=== PATIENT | male | born 1995 | race Caucasian/White ===

== ENCOUNTER 2018-10-01 13:48 | Emergency (ER) | payer SELFPAY ==
[~2018-10-01] VITALS: Ht 180.3 cm; Wt 90.9 kg
[2018-10-01] MEDS ORDERED: [UNRECOGNIZED DRUG - OTHER] PO (14:01)
[2018-10-01] MEDS ORDERED: ESCI20TA PO (14:01)
[2018-10-01] MEDS ORDERED: ARIP5TAB8 PO (14:01)
[2018-10-01] MEDS ORDERED: BUSP15 PO (14:01)
[2018-10-01] MEDS ORDERED: DOCU240C25 PO (14:01)
[2018-10-01] MEDS ORDERED: GABA-531 PO (14:01)
[2018-10-01] MEDS ORDERED: SENN15TA38 PO (14:01)
[2018-10-01] MEDS ORDERED: OMEG-53 PO (14:01)
[2018-10-01] MEDS ORDERED: LISD30CA PO (14:01)
[2018-10-01] MEDS ORDERED: GABA-533 PO (14:03)
[2018-10-01] MEDS ORDERED: DSS100 PO (14:03)
[2018-10-01 17:22] VITALS: BP 141/93
== END 2018-10-01 17:25 | disposition home or self-care (01) ==
LOC: EMS 13:50
DX: F32.9 Major depressive disorder, single episode, unspecified (principal); F41.9 Anxiety disorder, unspecified

== ENCOUNTER 2020-11-18 13:37 | Inpatient (IN) | payer MEDICAID ==
[~2020-11-18] VITALS: Ht 180.3 cm; Wt 77.1 kg
[~2020-11-18 13:37] MED LIST: ARIP5TAB8 PO; BUSP15 PO; DSS100 PO; ESCI20TA87 PO; GABA-1201 PO; LISD30CA PO; OMEG-53 PO; SENN15TA4 PO; [UNRECOGNIZED DRUG - OTHER] PO
[2020-11-18] MEDS ORDERED: OLAN10TA3 PO (16:46)
[2020-11-18] MEDS ORDERED: DIVA-85 PO (16:46)
[2020-11-18] MEDS ORDERED: INFLUENZA VIRUS VACCINE QVS 2020-21 (6MO+)/PF 60 MCG/0.5 ML SYRINGE IM ONE (20:15)
[2020-11-18 21:00] VITALS: BP 133/88
[2020-11-18] MEDS ORDERED: DOCUSATE SODIUM 100 MG CAPSULE PO PRN (22:30)
[2020-11-19 05:38] VITALS: BP 129/63
[2020-11-19] MEDS ORDERED: OMEPRAZOLE 20 MG CAPSULE PO PRN (06:15)
[2020-11-19] MEDS ORDERED: BENZOCAINE/MENTHOL LOZENGE PO PRN (06:15)
[2020-11-19] MEDS ORDERED: LOPERAMIDE HCL 2 MG CAPSULE PO PRN (06:15)
[2020-11-19] MEDS ORDERED: ALBUTEROL SULFATE HFA 90 MCG/PUFF 8 GM INHALER IH PRN (06:15)
[2020-11-19] MEDS ORDERED: BACITRACIN 28 GM OINTMENT TP PRN (06:15)
[2020-11-19] MEDS ORDERED: CloNIDine HCL 0.1 MG TABLET PO PRN (06:15)
[2020-11-19] MEDS ORDERED: ONDANSETRON HCL 4 MG TABLET PO PRN (06:15)
[2020-11-19] MEDS ORDERED: ACETAMINOPHEN 325 MG TABLET PO PRN (06:15)
[2020-11-19] MEDS ORDERED: PETROLATUM,WHITE 28 GM JELLY TP PRN (06:15)
[2020-11-19] MEDS ORDERED: IBUPROFEN 600 MG TABLET PO PRN (06:15)
[2020-11-19] MEDS ORDERED: MAG HYDROX/AL HYDROX/SIMETH ES 30 ML SUSPENSION UDCUP PO PRN (06:15)
[2020-11-19 08:26] VITALS: BP 102/57
[2020-11-19 08:51] LABS: APPEARANCE,URINE CLEAR (CLEAR); BILIRUBIN,URINE NEGATIVE (NEGATIVE); GLUCOSE, URINE (UA) NEGATIVE (NEGATIVE); KETONES,URINE NEGATIVE (NEGATIVE); LEUKOCYTE ESTERASE ,URINE NEGATIVE (NEGATIVE); NITRATE,URINE NEGATIVE (NEGATIVE); OCCULT BLOOD,URINE NEGATIVE (NEGATIVE); PROTEIN,URINE NEGATIVE (NEGATIVE); UROBILINOGEN,URINE 0.2 mg/dL (<=1.0)
[2020-11-19 08:54] LABS: AMPHET/METH SCREEN,URINE NEGATIVE (NEGATIVE); BARBITURATE SCREEN, URINE NEGATIVE (NEGATIVE); BENZODIAZEPINES SCREEN,URINE NEGATIVE (NEGATIVE); CANNABINOID SCREEN,URINE POSITIVE (NEGATIVE); COCAINE SCREEN,URINE NEGATIVE (NEGATIVE); METHADONE SCREEN, URINE NEGATIVE (NEGATIVE); OPIATE SCREEN,URINE NEGATIVE (NEGATIVE)
[2020-11-19 09:00] LABS: BASOPHILS % (AUTO) 0.8 % (0.0-2.0); EOSINOPHILS % (AUTO) 5.1 % (1.0-6.0); HEMATOCRIT 39.4 % (41-53); HEMOGLOBIN 13.9 g/dL (13.5-17.5); LYMPHOCYTES # (AUTO) 1.8 K/uL (1.0-4.8); LYMPHOCYTES % (AUTO) 34.9 % (22.0-44.0); MEAN CORPUSCULAR HEMOGLOBIN 29.9 pg (26.0-34.0); MEAN CORPUSCULAR HGB CONC 35.2 G/dL (31.0-37.0); MEAN CORPUSCULAR VOLUME 85 fL (80-100); MONOCYTES # (AUTO) 0.5 K/uL (0.1-1.0); MONOCYTES % (AUTO) 8.9 % (2.0-9.0); NEUTROPHILS # (AUTO) 2.6 K/uL (1.8-7.7); NEUTROPHILS % (AUTO) 50.3 % (40.0-70.0); PLATELET COUNT (AUTO) 283 K/uL (150-450); RED BLOOD CELL COUNT(AUTO) 4.65 MIL/uL (4.50-5.90); RED CELL DISTRIBUTION WIDTH 12.6 % (11.5-14.5)
[2020-11-19 09:08] LABS: HEMOGLOBIN A1C 4.9 % (3.8-5.6)
[2020-11-19] MEDS: NICOTINE 21 MG/24 HOUR PATCH TD SCH (09:13)
[2020-11-19 09:16] LABS: PHENCYCLIDINE SCREEN,URINE NEGATIVE (NEGATIVE)
[2020-11-19 09:45] LABS: ALANINE AMINOTRANSFERASE 44 U/L (12-78); ALBUMIN 3.8 g/dL (3.4-5.0); ALKALINE PHOSPHATASE 150 U/L (46-116); ANION GAP 6 mmol/L (8-16); ASPARTATE AMINOTRANSFERASE 25 U/L (15-37); BILIRUBIN,TOTAL 0.5 mg/dL (0.1-1.0); CALCIUM, TOTAL 9.1 mg/dL (8.8-10.5); CARBON DIOXIDE 28 mmol/L (22-29); CHLORIDE 104 mmol/L (98-107); CHOL/HDL RATIO 2.6 (4.2-7.3); CHOLESTEROL 136 mg/dL (131-200); CREATININE 1.21 mg/dL (0.60-1.30); FREE T4 (FREE THYROXINE) 0.87 ng/dL (0.76-1.46); GLOMERULAR FILTR. RATE CALC > 60 mL/min (>60); GLUCOSE,RANDOM 86 mg/dL (70-110); HDL CHOLESTEROL 52 mg/dL (40-60); LDL CHOL (CALC.) 74 mg/dL (0-130); POTASSIUM 3.9 mmol/L (3.5-5.1); SODIUM SERUM 138 mmol/L (136-145); THYROID STIMULATING HORMONE 0.21 uIU/mL (0.36-3.74); TOTAL PROTEIN, SERUM 7.2 g/dL (6.4-8.2); TRIGLYCERIDES 52 mg/dL (15-150); UREA NITROGEN, BLOOD 20 mg/dL (7-18)
[2020-11-19] MEDS: LORazepam 2 MG TABLET PO PRN (10:44)
[2020-11-19] MEDS: FLUoxetine HCL 20 MG CAPSULE PO SCH (13:55)
[2020-11-19] MEDS: GABAPENTIN 300 MG CAPSULE PO SCH (16:16)
[2020-11-19 16:42] VITALS: BP 127/76
[2020-11-19] MEDS: QUEtiapine FUMARATE 100 MG TABLET PO SCH (20:01)
[2020-11-20 06:35] VITALS: BP 118/78
[2020-11-20] MEDS: FLUoxetine HCL 20 MG CAPSULE PO SCH (08:14)
[2020-11-20] MEDS: GABAPENTIN 300 MG CAPSULE PO SCH ×3 (08:15→16:10)
[2020-11-20] MEDS: NICOTINE 21 MG/24 HOUR PATCH TD SCH (08:15)
[2020-11-20 08:47] VITALS: BP 116/72
[2020-11-20] MEDS: MAGNESIUM HYDROXIDE SUSPENSION 30 ML UDCUP PO PRN (15:53)
[2020-11-20] MEDS: LORazepam 2 MG TABLET PO PRN (15:54)
[2020-11-20 17:18] VITALS: BP 140/80
[2020-11-20] MEDS: QUEtiapine FUMARATE 100 MG TABLET PO SCH (20:10)
[2020-11-21 00:56] VITALS: BP 123/67
[2020-11-21] MEDS: FLUoxetine HCL 20 MG CAPSULE PO SCH (08:04)
[2020-11-21] MEDS: LORazepam 2 MG TABLET PO PRN ×3 (08:05→18:14)
[2020-11-21] MEDS: NICOTINE 21 MG/24 HOUR PATCH TD SCH (08:05)
[2020-11-21] MEDS: GABAPENTIN 300 MG CAPSULE PO SCH ×3 (08:05→16:05)
[2020-11-21 14:57] VITALS: BP 151/65
[2020-11-21 16:32] VITALS: BP 152/88
[2020-11-21] MEDS: QUEtiapine FUMARATE 100 MG TABLET PO SCH (20:02)
[2020-11-21 21:33] VITALS: BP 132/88
[2020-11-22 00:58] VITALS: BP 128/76
[2020-11-22 05:00] VITALS: BP 138/94
[2020-11-22] MEDS: LORazepam 2 MG TABLET PO PRN ×3 (05:03→19:34)
[2020-11-22] MEDS: FLUoxetine HCL 20 MG CAPSULE PO SCH (08:13)
[2020-11-22] MEDS: GABAPENTIN 300 MG CAPSULE PO SCH ×3 (08:13→16:41)
[2020-11-22] MEDS: NICOTINE 21 MG/24 HOUR PATCH TD SCH (08:13)
[2020-11-22] MEDS: LISINOPRIL 10 MG TABLET PO SCH (10:10)
[2020-11-22 13:49] VITALS: BP 144/80
[2020-11-22] MEDS: MAGNESIUM HYDROXIDE SUSPENSION 30 ML UDCUP PO PRN (15:01)
[2020-11-22 17:04] VITALS: BP 140/85
[2020-11-22] MEDS: QUEtiapine FUMARATE 100 MG TABLET PO SCH (21:18)
[2020-11-23 06:29] VITALS: BP 133/69
[2020-11-23] MEDS: LORazepam 2 MG TABLET PO PRN (06:33)
[2020-11-23 08:10] VITALS: BP 152/89
[2020-11-23] MEDS: GABAPENTIN 300 MG CAPSULE PO SCH ×3 (08:37→16:18)
[2020-11-23] MEDS: NICOTINE 21 MG/24 HOUR PATCH TD SCH (08:37)
[2020-11-23] MEDS: LISINOPRIL 10 MG TABLET PO SCH (08:37)
[2020-11-23] MEDS: FLUoxetine HCL 20 MG CAPSULE PO SCH (08:37)
[2020-11-23] MEDS: HALOPERIDOL 5 MG TABLET PO PRN (08:37)
[2020-11-23 08:48] LABS: COVID AG,FIA SOURCE NASOPHARYNGEAL
[2020-11-23] MEDS ORDERED: LORazepam 2 MG/ML VIAL IM ONE (09:40)
[2020-11-23] MEDS ORDERED: HALOPERIDOL LACTATE 5 MG/ML VIAL IM ONE (09:40)
[2020-11-23] MEDS ORDERED: HALOPERIDOL LACTATE 5 MG/ML VIAL ONE (09:44)
[2020-11-23] MEDS ORDERED: LORazepam 2 MG/ML VIAL ONE (09:44)
[2020-11-23 10:30] VITALS: BP 132/84
[2020-11-23 16:30] VITALS: BP 116/72
[2020-11-23] MEDS: QUEtiapine FUMARATE 100 MG TABLET PO SCH (20:15)
[2020-11-24 04:44] VITALS: BP 128/83
[2020-11-24 06:21] VITALS: BP 124/84
[2020-11-24] MEDS: LORazepam 2 MG TABLET PO PRN ×3 (06:24→17:14)
[2020-11-24] MEDS: FLUoxetine HCL 20 MG CAPSULE PO SCH (08:17)
[2020-11-24] MEDS: LISINOPRIL 10 MG TABLET PO SCH (08:17)
[2020-11-24] MEDS: GABAPENTIN 300 MG CAPSULE PO SCH ×3 (08:17→16:42)
[2020-11-24] MEDS: NICOTINE 21 MG/24 HOUR PATCH TD SCH (08:17)
[2020-11-24 08:30] VITALS: BP 138/84
[2020-11-24 16:25] VITALS: BP 11/74
[2020-11-24] MEDS: QUEtiapine FUMARATE 100 MG TABLET PO SCH (20:05)
[2020-11-24] MEDS: ZOLPIDEM TARTRATE 10 MG TABLET PO PRN (22:57)
[2020-11-25 05:36] VITALS: BP 126/82
[2020-11-25] MEDS: LORazepam 2 MG TABLET PO PRN ×3 (05:40→17:35)
[2020-11-25] MEDS: HALOPERIDOL 5 MG TABLET PO PRN (06:20)
[2020-11-25] MEDS: GABAPENTIN 300 MG CAPSULE PO SCH ×3 (08:01→16:28)
[2020-11-25] MEDS: LITHIUM CARBONATE 300 MG CAPSULE PO SCH ×2 (08:01→16:28)
[2020-11-25] MEDS: LISINOPRIL 10 MG TABLET PO SCH (08:01)
[2020-11-25] MEDS: FLUoxetine HCL 20 MG CAPSULE PO SCH (08:01)
[2020-11-25] MEDS: NICOTINE 21 MG/24 HOUR PATCH TD SCH (08:02)
[2020-11-25 08:19] VITALS: BP 120/70
[2020-11-25 16:33] VITALS: BP 128/78
[2020-11-25] MEDS: QUEtiapine FUMARATE 100 MG TABLET PO SCH (20:10)
[2020-11-26] MEDS: LORazepam 2 MG TABLET PO PRN ×3 (04:51→15:54)
[2020-11-26 05:01] VITALS: BP 131/83
[2020-11-26] MEDS: MULTIVITAMINS WITH MINERALS, THERAPEUTIC TABLET PO SCH (08:21)
[2020-11-26] MEDS: LITHIUM CARBONATE 300 MG CAPSULE PO SCH ×2 (08:21→17:38)
[2020-11-26] MEDS: NICOTINE 21 MG/24 HOUR PATCH TD SCH (08:21)
[2020-11-26] MEDS: LISINOPRIL 10 MG TABLET PO SCH (08:21)
[2020-11-26] MEDS: FLUoxetine HCL 20 MG CAPSULE PO SCH (08:21)
[2020-11-26] MEDS: GABAPENTIN 300 MG CAPSULE PO SCH ×3 (08:21→17:38)
[2020-11-26 08:40] VITALS: BP 128/74
[2020-11-26 16:36] VITALS: BP 129/81
[2020-11-26] MEDS: QUEtiapine FUMARATE 100 MG TABLET PO SCH (20:06)
[2020-11-26] MEDS: ZOLPIDEM TARTRATE 10 MG TABLET PO PRN (20:32)
[2020-11-27 00:45] VITALS: BP 126/71
[2020-11-27] MEDS: LORazepam 2 MG TABLET PO PRN ×2 (06:53→13:56)
[2020-11-27] MEDS: GABAPENTIN 300 MG CAPSULE PO SCH ×3 (08:34→16:11)
[2020-11-27] MEDS: FLUoxetine HCL 20 MG CAPSULE PO SCH (08:34)
[2020-11-27] MEDS: LISINOPRIL 10 MG TABLET PO SCH (08:34)
[2020-11-27] MEDS: LITHIUM CARBONATE 300 MG CAPSULE PO SCH ×2 (08:34→16:11)
[2020-11-27] MEDS: MULTIVITAMINS WITH MINERALS, THERAPEUTIC TABLET PO SCH (08:34)
[2020-11-27] MEDS: NICOTINE 21 MG/24 HOUR PATCH TD SCH (08:34)
[2020-11-27 08:45] VITALS: BP 132/72
[2020-11-27 16:29] VITALS: BP 138/86
[2020-11-27] MEDS: HALOPERIDOL 5 MG TABLET PO PRN (18:16)
[2020-11-27] MEDS: QUEtiapine FUMARATE 100 MG TABLET PO SCH (20:05)
[2020-11-28 00:38] VITALS: BP 128/76
[2020-11-28] MEDS: FLUoxetine HCL 20 MG CAPSULE PO SCH (08:14)
[2020-11-28] MEDS: LITHIUM CARBONATE 300 MG CAPSULE PO SCH (08:14)
[2020-11-28] MEDS: GABAPENTIN 300 MG CAPSULE PO SCH ×2 (08:14→12:53)
[2020-11-28] MEDS: MULTIVITAMINS WITH MINERALS, THERAPEUTIC TABLET PO SCH (08:14)
[2020-11-28] MEDS: LISINOPRIL 10 MG TABLET PO SCH (08:14)
[2020-11-28] MEDS: NICOTINE 21 MG/24 HOUR PATCH TD SCH (08:16)
[2020-11-28] MEDS: LORazepam 2 MG TABLET PO PRN (08:41)
[2020-11-28 08:44] VITALS: BP 115/64
[2020-11-28] MEDS ORDERED: LITH300C3 PO (10:36)
[2020-11-28] MEDS ORDERED: GABA-1181 PO (10:36)
[2020-11-28] MEDS ORDERED: LISI-893 PO (10:36)
[2020-11-28] MEDS ORDERED: FLUO-191 PO (10:36)
[2020-11-28] MEDS ORDERED: QUET100T PO (10:36)
== END 2020-11-28 13:00 | disposition home or self-care (01) | DRG 751 ==
LOC: B2S 19:59
PROVIDERS: ADMIT Psychiatry & Neurology Psychiatry; ATTEND Psychiatry & Neurology Psychiatry
DX: F29 Unspecified psychosis not due to a substance or known physiological condition (principal); R45.851 Suicidal ideations; F41.9 Anxiety disorder, unspecified; F12.90 Cannabis use, unspecified, uncomplicated; R41.843 Psychomotor deficit; R63.0 Anorexia; Z68.23 Body mass index [BMI] 23.0-23.9, adult; R63.4 Abnormal weight loss; K59.00 Constipation, unspecified; G47.00 Insomnia, unspecified; Z20.822 Contact with and (suspected) exposure to COVID-19; Z23 Encounter for immunization
CPT/HCPCS: 80307; 83036; 84439; 84443; 87081; 87426; 90686; J1630; J2060

== ENCOUNTER 2020-12-14 12:07 | Inpatient (IN) | payer MEDICAID ==
[~2020-12-14] VITALS: Ht 180.3 cm; Wt 76.6 kg
[~2020-12-14 12:07] MED LIST changes: -ARIP5TAB8 PO; -BUSP15 PO; -DSS100 PO; -ESCI20TA87 PO; +FLUO-191 PO; +GABA-1181 PO; -GABA-1201 PO; -LISD30CA PO; +LISI-893 PO; +LITH300C3 PO; -OMEG-53 PO; +QUET100T PO; -SENN15TA4 PO; -[UNRECOGNIZED DRUG - OTHER] PO
[2020-12-14] MEDS ORDERED: HALOPERIDOL 5 MG TABLET PO PRN (17:30)
[2020-12-14] MEDS ORDERED: -PHARMACY VACCINE NOTE- MISC ONE (18:15)
[2020-12-14 18:29] VITALS: BP 159/96
[2020-12-14] MEDS: LORazepam 2 MG TABLET PO PRN (18:39)
[2020-12-15 00:50] VITALS: BP 113/71
[2020-12-15] MEDS: ZOLPIDEM TARTRATE 10 MG TABLET PO PRN (00:55)
[2020-12-15] MEDS: NICOTINE 21 MG/24 HOUR PATCH TD SCH (08:02)
[2020-12-15] MEDS: LISINOPRIL 10 MG TABLET PO SCH (08:02)
[2020-12-15] MEDS: LORazepam 2 MG TABLET PO PRN ×3 (08:05→20:36)
[2020-12-15 08:23] VITALS: BP 136/82
[2020-12-15 08:41] LABS: BASOPHILS % (AUTO) 0.5 % (0.0-2.0); EOSINOPHILS % (AUTO) 3.1 % (1.0-6.0); HEMATOCRIT 41.7 % (41-53); LYMPHOCYTES # (AUTO) 1.9 K/uL (1.0-4.8); LYMPHOCYTES % (AUTO) 23.5 % (22.0-44.0); MEAN CORPUSCULAR HGB CONC 33.6 G/dL (31.0-37.0); MEAN CORPUSCULAR VOLUME 87 fL (80-100); MONOCYTES # (AUTO) 1.1 K/uL (0.1-1.0); MONOCYTES % (AUTO) 13.4 % (2.0-9.0); NEUTROPHILS # (AUTO) 4.8 K/uL (1.8-7.7); NEUTROPHILS % (AUTO) 59.5 % (40.0-70.0); PLATELET COUNT (AUTO) 348 K/uL (150-450); RED BLOOD CELL COUNT(AUTO) 4.82 MIL/uL (4.50-5.90)
[2020-12-15 08:52] LABS: HEMOGLOBIN A1C 4.8 % (3.8-5.6)
[2020-12-15 09:01] LABS: ALANINE AMINOTRANSFERASE 39 U/L (12-78); ALBUMIN 3.6 g/dL (3.4-5.0); ALKALINE PHOSPHATASE 179 U/L (46-116); ANION GAP 7 mmol/L (8-16); ASPARTATE AMINOTRANSFERASE 26 U/L (15-37); BILIRUBIN,TOTAL 0.4 mg/dL (0.1-1.0); CALCIUM, TOTAL 9.1 mg/dL (8.8-10.5); CARBON DIOXIDE 30 mmol/L (22-29); CHLORIDE 104 mmol/L (98-107); CHOL/HDL RATIO 2.1 (4.2-7.3); CHOLESTEROL 121 mg/dL (131-200); FREE T4 (FREE THYROXINE) 1.05 ng/dL (0.76-1.46); GLOMERULAR FILTR. RATE CALC > 60 mL/min (>60); GLUCOSE,RANDOM 88 mg/dL (70-110); HDL CHOLESTEROL 58 mg/dL (40-60); LDL CHOL (CALC.) 56 mg/dL (0-130); POTASSIUM 4.2 mmol/L (3.5-5.1); SODIUM SERUM 141 mmol/L (136-145); THYROID STIMULATING HORMONE 0.51 uIU/mL (0.36-3.74); TOTAL PROTEIN, SERUM 7.1 g/dL (6.4-8.2); TRIGLYCERIDES 36 mg/dL (15-150); UREA NITROGEN, BLOOD 15 mg/dL (7-18)
[2020-12-15 16:20] VITALS: BP 128/65
[2020-12-15] MEDS ORDERED: QUEtiapine FUMARATE 100 MG TABLET PO SCH (21:00)
[2020-12-16 01:43] VITALS: BP 118/69
[2020-12-16] MEDS: FLUoxetine HCL 20 MG CAPSULE PO SCH (08:11)
[2020-12-16] MEDS: GABAPENTIN 400 MG CAPSULE PO SCH ×3 (08:11→17:58)
[2020-12-16] MEDS: LISINOPRIL 10 MG TABLET PO SCH (08:11)
[2020-12-16] MEDS: LITHIUM CARBONATE 300 MG CAPSULE PO SCH ×2 (08:11→17:58)
[2020-12-16] MEDS: NICOTINE 21 MG/24 HOUR PATCH TD SCH (08:13)
[2020-12-16 08:24] VITALS: BP 138/79
[2020-12-16 08:41] LABS: BILIRUBIN,URINE NEGATIVE (NEGATIVE); GLUCOSE, URINE (UA) NEGATIVE (NEGATIVE); KETONES,URINE NEGATIVE (NEGATIVE); LEUKOCYTE ESTERASE ,URINE NEGATIVE (NEGATIVE); NITRATE,URINE NEGATIVE (NEGATIVE); OCCULT BLOOD,URINE NEGATIVE (NEGATIVE); PH,URINE 7.5 (5.0-8.0); PROTEIN,URINE NEGATIVE (NEGATIVE); UROBILINOGEN,URINE 0.2 mg/dL (<=1.0)
[2020-12-16 08:44] LABS: AMPHET/METH SCREEN,URINE NEGATIVE (NEGATIVE); BARBITURATE SCREEN, URINE NEGATIVE (NEGATIVE); BENZODIAZEPINES SCREEN,URINE NEGATIVE (NEGATIVE); CANNABINOID SCREEN,URINE NEGATIVE (NEGATIVE); COCAINE SCREEN,URINE NEGATIVE (NEGATIVE); METHADONE SCREEN, URINE NEGATIVE (NEGATIVE); OPIATE SCREEN,URINE NEGATIVE (NEGATIVE)
[2020-12-16 08:47] LABS: PHENCYCLIDINE SCREEN,URINE NEGATIVE (NEGATIVE)
[2020-12-16 08:50] LABS: APPEARANCE,URINE HAZY (CLEAR)
[2020-12-16] MEDS ORDERED: GABAPENTIN 300 MG CAPSULE PO SCH (09:00)
[2020-12-16] MEDS: LORazepam 2 MG TABLET PO PRN ×3 (11:52→21:48)
[2020-12-16 16:22] VITALS: BP 150/89
[2020-12-16] MEDS: QUEtiapine FUMARATE 300 MG TABLET PO SCH (20:23)
[2020-12-16] MEDS: ZOLPIDEM TARTRATE 10 MG TABLET PO PRN (20:23)
[2020-12-16] MEDS ORDERED: HALOPERIDOL LACTATE 5 MG/ML VIAL IM ONE (22:00)
[2020-12-16] MEDS ORDERED: DiphenhydrAMINE HCL 50 MG/ML VIAL IM ONE (22:00)
[2020-12-17 06:00] VITALS: BP 111/67
[2020-12-17 09:07] VITALS: BP 137/88
[2020-12-17] MEDS: MULTIVITAMINS WITH MINERALS, THERAPEUTIC TABLET PO SCH (10:00)
[2020-12-17] MEDS: FOLIC ACID 1 MG TABLET PO SCH (10:00)
[2020-12-17] MEDS: LISINOPRIL 10 MG TABLET PO SCH (10:00)
[2020-12-17] MEDS: LITHIUM CARBONATE 300 MG CAPSULE PO SCH ×2 (10:01→16:52)
[2020-12-17] MEDS: GABAPENTIN 400 MG CAPSULE PO SCH ×3 (10:01→16:52)
[2020-12-17] MEDS: FLUoxetine HCL 20 MG CAPSULE PO SCH (10:01)
[2020-12-17] MEDS: THIAMINE 100 MG TABLET PO SCH (10:01)
[2020-12-17] MEDS: NICOTINE 21 MG/24 HOUR PATCH TD SCH (10:01)
[2020-12-17] MEDS: LORazepam 2 MG TABLET PO PRN ×2 (13:15→19:37)
[2020-12-17 16:45] VITALS: BP 137/90
[2020-12-17] MEDS ORDERED: ACETAMINOPHEN 325 MG TABLET PO PRN (19:45)
[2020-12-17] MEDS: QUEtiapine FUMARATE 300 MG TABLET PO SCH (20:17)
[2020-12-17] MEDS: ZOLPIDEM TARTRATE 10 MG TABLET PO PRN (21:41)
[2020-12-18 05:20] VITALS: BP 143/85
[2020-12-18] MEDS: LISINOPRIL 10 MG TABLET PO SCH (08:09)
[2020-12-18] MEDS: FOLIC ACID 1 MG TABLET PO SCH (08:09)
[2020-12-18] MEDS: LITHIUM CARBONATE 300 MG CAPSULE PO SCH ×2 (08:09→16:12)
[2020-12-18] MEDS: FLUoxetine HCL 20 MG CAPSULE PO SCH (08:10)
[2020-12-18] MEDS: THIAMINE 100 MG TABLET PO SCH (08:10)
[2020-12-18] MEDS: GABAPENTIN 400 MG CAPSULE PO SCH ×3 (08:10→16:12)
[2020-12-18] MEDS: MULTIVITAMINS WITH MINERALS, THERAPEUTIC TABLET PO SCH (08:10)
[2020-12-18] MEDS: NICOTINE 21 MG/24 HOUR PATCH TD SCH (08:11)
[2020-12-18 08:46] VITALS: BP 150/83
[2020-12-18 10:25] VITALS: BP 132/69
[2020-12-18 17:30] VITALS: BP 145/79
[2020-12-18] MEDS: ZOLPIDEM TARTRATE 10 MG TABLET PO PRN (20:33)
[2020-12-18] MEDS: QUEtiapine FUMARATE 300 MG TABLET PO SCH (20:58)
[2020-12-19 00:44] VITALS: BP 136/72
[2020-12-19] MEDS: FLUoxetine HCL 20 MG CAPSULE PO SCH (08:24)
[2020-12-19] MEDS: MULTIVITAMINS WITH MINERALS, THERAPEUTIC TABLET PO SCH (08:24)
[2020-12-19] MEDS: LITHIUM CARBONATE 300 MG CAPSULE PO SCH (08:24)
[2020-12-19] MEDS: FOLIC ACID 1 MG TABLET PO SCH (08:24)
[2020-12-19] MEDS: LISINOPRIL 10 MG TABLET PO SCH (08:24)
[2020-12-19] MEDS: THIAMINE 100 MG TABLET PO SCH (08:24)
[2020-12-19] MEDS: GABAPENTIN 400 MG CAPSULE PO SCH ×2 (08:24→12:04)
[2020-12-19] MEDS: NICOTINE 21 MG/24 HOUR PATCH TD SCH (08:24)
[2020-12-19 08:58] VITALS: BP 143/78
[2020-12-19] MEDS ORDERED: GABA-1181 PO (09:05)
[2020-12-19] MEDS ORDERED: QUET200T PO (09:05)
[2020-12-19 09:24] LABS: COVID AG,FIA SOURCE NASAL SWAB
[2020-12-20] MEDS ORDERED: GABA-1201 PO (19:34)
[2020-12-20] MEDS ORDERED: QUET300T2 PO (19:34)
== END 2020-12-19 14:40 | disposition home or self-care (01) | DRG 750 ==
LOC: B2S 17:28
PROVIDERS: ADMIT Psychiatry & Neurology Psychiatry; ATTEND Psychiatry & Neurology Psychiatry
DX: F25.9 Schizoaffective disorder, unspecified (principal); R45.851 Suicidal ideations; Z59.0 Homelessness; I10 Essential (primary) hypertension; F15.90 Other stimulant use, unspecified, uncomplicated; F41.9 Anxiety disorder, unspecified; G47.00 Insomnia, unspecified; F19.10 Other psychoactive substance abuse, uncomplicated; Z20.822 Contact with and (suspected) exposure to COVID-19; K59.00 Constipation, unspecified; F17.200 Nicotine dependence, unspecified, uncomplicated; Z71.6 Tobacco abuse counseling; Z71.51 Drug abuse counseling and surveillance of drug abuser
CPT/HCPCS: 80307; 83036; 84439; 84443; 87081; 87426; J1200; J1630

== ENCOUNTER 2020-12-20 16:47 | Inpatient (IN) | payer MEDICAID, OTHER ==
[~2020-12-20] VITALS: Ht 180.3 cm; Wt 80.5 kg
[~2020-12-20 16:47] MED LIST changes: -QUET100T PO; +QUET200T PO
[2020-12-20 17:30] LABS: BASOPHILS % (AUTO) 0.7 % (0.0-2.0); EOSINOPHILS % (AUTO) 0.4 % (1.0-6.0); HEMATOCRIT 41.3 % (41-53); LYMPHOCYTES # (AUTO) 2.4 K/uL (1.0-4.8); LYMPHOCYTES % (AUTO) 15.4 % (22.0-44.0); MEAN CORPUSCULAR HGB CONC 34.1 G/dL (31.0-37.0); MEAN CORPUSCULAR VOLUME 85 fL (80-100); MONOCYTES # (AUTO) 1.4 K/uL (0.1-1.0); MONOCYTES % (AUTO) 9.2 % (2.0-9.0); NEUTROPHILS # (AUTO) 11.6 K/uL (1.8-7.7); NEUTROPHILS % (AUTO) 74.3 % (40.0-70.0); PLATELET COUNT (AUTO) 381 K/uL (150-450); RED BLOOD CELL COUNT(AUTO) 4.84 MIL/uL (4.50-5.90)
[2020-12-20 17:36] LABS: COVID AG,FIA SOURCE NASOPHARYNGEAL
[2020-12-20 17:52] LABS: ANION GAP 9 mmol/L (8-16); CALCIUM, TOTAL 9.4 mg/dL (8.8-10.5); CARBON DIOXIDE 31 mmol/L (22-29); CHLORIDE 98 mmol/L (98-107); GLOMERULAR FILTR. RATE CALC > 60 mL/min (>60); GLUCOSE,RANDOM 102 mg/dL (70-110); POTASSIUM 3.5 mmol/L (3.5-5.1); SODIUM SERUM 138 mmol/L (136-145); UREA NITROGEN, BLOOD 17 mg/dL (7-18)
[2020-12-20 17:57] LABS: ALANINE AMINOTRANSFERASE 45 U/L (12-78); ALBUMIN 4.2 g/dL (3.4-5.0); ALKALINE PHOSPHATASE 154 U/L (46-116); ASPARTATE AMINOTRANSFERASE 42 U/L (15-37); BILIRUBIN,TOTAL 0.7 mg/dL (0.1-1.0); TOTAL PROTEIN, SERUM 7.9 g/dL (6.4-8.2)
[2020-12-20 18:12] LABS: AMPHET/METH SCREEN,URINE POSITIVE (NEGATIVE); BARBITURATE SCREEN, URINE NEGATIVE (NEGATIVE); BENZODIAZEPINES SCREEN,URINE NEGATIVE (NEGATIVE); CANNABINOID SCREEN,URINE POSITIVE (NEGATIVE); COCAINE SCREEN,URINE NEGATIVE (NEGATIVE); METHADONE SCREEN, URINE NEGATIVE (NEGATIVE); OPIATE SCREEN,URINE NEGATIVE (NEGATIVE)
[2020-12-20 18:14] LABS: PHENCYCLIDINE SCREEN,URINE NEGATIVE (NEGATIVE)
[2020-12-20] MEDS ORDERED: ZOLPIDEM TARTRATE 10 MG TABLET PO PRN (19:30)
[2020-12-20] MEDS ORDERED: QUET300T2 PO (19:34)
[2020-12-20] MEDS ORDERED: GABA-1201 PO (19:34)
[2020-12-20] MEDS ORDERED: ACETAMINOPHEN 500 MG TABLET PO ONE (20:30)
[2020-12-20 21:50] VITALS: BP 122/74
[2020-12-20] MEDS ORDERED: -PHARMACY VACCINE NOTE- MISC ONE (22:15)
[2020-12-21 00:03] VITALS: BP 127/81
[2020-12-21] MEDS: LORazepam 2 MG TABLET PO PRN ×3 (00:04→17:32)
[2020-12-21] MEDS ORDERED: PETROLATUM,WHITE 28 GM JELLY TP PRN (08:30)
[2020-12-21] MEDS ORDERED: BENZOCAINE/MENTHOL LOZENGE PO PRN (08:30)
[2020-12-21] MEDS ORDERED: CloNIDine HCL 0.1 MG TABLET PO PRN (08:30)
[2020-12-21] MEDS ORDERED: ALBUTEROL SULFATE HFA 90 MCG/PUFF 8 GM INHALER IH PRN (08:30)
[2020-12-21] MEDS ORDERED: OMEPRAZOLE 20 MG CAPSULE PO PRN (08:30)
[2020-12-21] MEDS ORDERED: LOPERAMIDE HCL 2 MG CAPSULE PO PRN (08:30)
[2020-12-21] MEDS ORDERED: IBUPROFEN 600 MG TABLET PO PRN (08:30)
[2020-12-21] MEDS ORDERED: ACETAMINOPHEN 325 MG TABLET PO PRN (08:30)
[2020-12-21] MEDS ORDERED: ONDANSETRON HCL 4 MG TABLET PO PRN (08:30)
[2020-12-21] MEDS ORDERED: DOCUSATE SODIUM 100 MG CAPSULE PO PRN (08:30)
[2020-12-21] MEDS ORDERED: BACITRACIN 28 GM OINTMENT TP PRN (08:30)
[2020-12-21] MEDS ORDERED: MAG HYDROX/AL HYDROX/SIMETH ES 30 ML SUSPENSION UDCUP PO PRN (08:30)
[2020-12-21 08:31] VITALS: BP 118/66
[2020-12-21] MEDS ORDERED: LORazepam 2 MG/ML VIAL ONE (08:51)
[2020-12-21] MEDS ORDERED: HALOPERIDOL LACTATE 5 MG/ML VIAL ONE (08:51)
[2020-12-21] MEDS ORDERED: HALOPERIDOL LACTATE 5 MG/ML VIAL IM ONE ×2 (09:00→09:15)
[2020-12-21] MEDS ORDERED: LORazepam 2 MG/ML VIAL IM ONE ×2 (09:00→09:15)
[2020-12-21] MEDS ORDERED: DiphenhydrAMINE HCL 50 MG/ML VIAL IM ONE ×2 (09:00→09:15)
[2020-12-21 16:43] VITALS: BP 136/68
[2020-12-21] MEDS: HALOPERIDOL 5 MG TABLET PO PRN (17:33)
[2020-12-21] MEDS: MAGNESIUM HYDROXIDE SUSPENSION 30 ML UDCUP PO PRN (20:53)
[2020-12-22 04:52] VITALS: BP 121/69
[2020-12-22] MEDS: LORazepam 2 MG TABLET PO PRN ×4 (06:24→22:45)
[2020-12-22] MEDS: LITHIUM CARBONATE 300 MG CAPSULE PO SCH ×2 (07:43→16:39)
[2020-12-22] MEDS: HALOPERIDOL 5 MG TABLET PO PRN (07:43)
[2020-12-22] MEDS: FLUoxetine HCL 20 MG CAPSULE PO SCH (07:43)
[2020-12-22 08:38] VITALS: BP 146/81
[2020-12-22] MEDS ORDERED: NICOTINE 21 MG/24 HOUR PATCH TD ONE (11:30)
[2020-12-22 16:35] VITALS: BP 113/73
[2020-12-23 08:38] VITALS: BP 135/78
[2020-12-23] MEDS: FLUoxetine HCL 20 MG CAPSULE PO SCH (08:59)
[2020-12-23] MEDS: LITHIUM CARBONATE 300 MG CAPSULE PO SCH ×2 (08:59→16:36)
[2020-12-23] MEDS: LORazepam 2 MG TABLET PO PRN ×4 (09:08→23:55)
[2020-12-23] MEDS: NICOTINE 21 MG/24 HOUR PATCH TD SCH (12:41)
[2020-12-23 16:32] VITALS: BP 146/92
[2020-12-23 19:06] VITALS: BP 138/85
[2020-12-24 00:23] VITALS: BP 145/96
[2020-12-24 08:30] LABS: BASOPHILS % (AUTO) 4.8 % (0.0-2.0); EOSINOPHILS % (AUTO) 1.7 % (1.0-6.0); HEMATOCRIT 45.4 % (41-53); HEMOGLOBIN 14.3 g/dL (13.5-17.5); LYMPHOCYTES # (AUTO) 2.3 K/uL (1.0-4.8); LYMPHOCYTES % (AUTO) 25.3 % (22.0-44.0); MEAN CORPUSCULAR HEMOGLOBIN 29.4 pg (26.0-34.0); MEAN CORPUSCULAR HGB CONC 31.6 G/dL (31.0-37.0); MEAN CORPUSCULAR VOLUME 93 fL (80-100); MONOCYTES # (AUTO) 0.5 K/uL (0.1-1.0); NEUTROPHILS # (AUTO) 5.7 K/uL (1.8-7.7); NEUTROPHILS % (AUTO) 62.2 % (40.0-70.0); PLATELET COUNT (AUTO) 417 K/uL (150-450); RED BLOOD CELL COUNT(AUTO) 4.87 MIL/uL (4.50-5.90); RED CELL DISTRIBUTION WIDTH 13.6 % (11.5-14.5)
[2020-12-24 08:38] VITALS: BP 148/85
[2020-12-24 08:57] LABS: ALANINE AMINOTRANSFERASE 40 U/L (12-78); ALBUMIN 3.9 g/dL (3.4-5.0); ALKALINE PHOSPHATASE 195 U/L (46-116); ANION GAP 10 mmol/L (8-16); ASPARTATE AMINOTRANSFERASE 25 U/L (15-37); BILIRUBIN,TOTAL 0.4 mg/dL (0.1-1.0); CALCIUM, TOTAL 9.2 mg/dL (8.8-10.5); CARBON DIOXIDE 26 mmol/L (22-29); CHLORIDE 100 mmol/L (98-107); CREATININE 0.91 mg/dL (0.60-1.30); GLOMERULAR FILTR. RATE CALC > 60 mL/min (>60); GLUCOSE,RANDOM 82 mg/dL (70-110); PHOSPHORUS 3.3 mg/dL (2.5-4.9); POTASSIUM 3.9 mmol/L (3.5-5.1); SODIUM SERUM 136 mmol/L (136-145); TOTAL PROTEIN, SERUM 7.7 g/dL (6.4-8.2); UREA NITROGEN, BLOOD 11 mg/dL (7-18)
[2020-12-24] MEDS: FLUoxetine HCL 20 MG CAPSULE PO SCH (09:06)
[2020-12-24] MEDS: NICOTINE 21 MG/24 HOUR PATCH TD SCH (09:06)
[2020-12-24] MEDS: LITHIUM CARBONATE 300 MG CAPSULE PO SCH ×2 (09:06→16:40)
[2020-12-24] MEDS: LORazepam 2 MG TABLET PO PRN ×3 (09:31→21:24)
[2020-12-24] MEDS: HALOPERIDOL 5 MG TABLET PO PRN (17:19)
[2020-12-24 18:04] VITALS: BP 135/90
[2020-12-25 04:37] VITALS: BP 128/76
[2020-12-25] MEDS: HALOPERIDOL 5 MG TABLET PO PRN ×2 (08:28→20:11)
[2020-12-25] MEDS: NICOTINE 21 MG/24 HOUR PATCH TD SCH (08:28)
[2020-12-25] MEDS: LORazepam 2 MG TABLET PO PRN ×3 (08:28→20:11)
[2020-12-25] MEDS: LITHIUM CARBONATE 300 MG CAPSULE PO SCH ×2 (08:28→18:05)
[2020-12-25] MEDS: FLUoxetine HCL 20 MG CAPSULE PO SCH (08:28)
[2020-12-25 08:47] VITALS: BP 127/90
[2020-12-25 16:12] VITALS: BP 140/85
[2020-12-26 01:38] VITALS: BP 128/80
[2020-12-26] MEDS: LITHIUM CARBONATE 300 MG CAPSULE PO SCH ×2 (09:03→17:14)
[2020-12-26] MEDS: FLUoxetine HCL 20 MG CAPSULE PO SCH (09:03)
[2020-12-26] MEDS: LORazepam 2 MG TABLET PO PRN ×4 (09:03→22:46)
[2020-12-26 09:18] VITALS: BP 138/86
[2020-12-26] MEDS: NICOTINE 21 MG/24 HOUR PATCH TD SCH (09:33)
[2020-12-26] MEDS: HALOPERIDOL 5 MG TABLET PO PRN ×2 (11:19→22:46)
[2020-12-26 16:22] VITALS: BP 134/93
[2020-12-27 05:56] VITALS: BP 132/84
[2020-12-27] MEDS: LORazepam 2 MG TABLET PO PRN ×3 (07:19→11:20)
[2020-12-27] MEDS: HALOPERIDOL 5 MG TABLET PO PRN ×3 (07:19→11:20)
[2020-12-27 08:51] VITALS: BP 114/67
[2020-12-27] MEDS: LITHIUM CARBONATE 300 MG CAPSULE PO SCH ×2 (08:53→16:43)
[2020-12-27] MEDS: NICOTINE 21 MG/24 HOUR PATCH TD SCH (08:53)
[2020-12-27] MEDS: FLUoxetine HCL 20 MG CAPSULE PO SCH (08:53)
[2020-12-27] MEDS: MAGNESIUM HYDROXIDE SUSPENSION 30 ML UDCUP PO PRN (13:03)
[2020-12-27 16:12] VITALS: BP 136/84
[2020-12-28 04:08] VITALS: BP 110/70
[2020-12-28] MEDS: LORazepam 2 MG TABLET PO PRN (06:15)
[2020-12-28] MEDS: FLUoxetine HCL 20 MG CAPSULE PO SCH (08:29)
[2020-12-28] MEDS: NICOTINE 21 MG/24 HOUR PATCH TD SCH (08:30)
[2020-12-28] MEDS: LITHIUM CARBONATE 300 MG CAPSULE PO SCH (08:30)
[2020-12-28 09:04] VITALS: BP 128/91
[2020-12-28] MEDS: HALOPERIDOL 5 MG TABLET PO PRN (09:54)
== END 2020-12-28 12:45 | disposition home or self-care (01) | DRG 750 ==
LOC: EMS 16:49 → B3A 19:28
PROVIDERS: ADMIT Psychiatry & Neurology Psychiatry; ATTEND Psychiatry & Neurology Psychiatry
DX: F25.0 Schizoaffective disorder, bipolar type (principal); R45.851 Suicidal ideations; F12.10 Cannabis abuse, uncomplicated; F15.10 Other stimulant abuse, uncomplicated; F41.9 Anxiety disorder, unspecified; G47.00 Insomnia, unspecified; Z20.822 Contact with and (suspected) exposure to COVID-19; Z59.0 Homelessness; Z91.14 Patient's other noncompliance with medication regimen
CPT/HCPCS: 83735; 84100; 87081; 87426; 99285; G0480; J1200; J1630; J2060